=== PATIENT | female | born 1970 | race Caucasian/White ===

== ENCOUNTER → 2017-11-15 | Outpatient (CLI) | payer OTHER ==
[~2017-11-15] MED LIST: LEVO75TA PO; LORA-446 PO; OXYC-302 PO; PARO20TA98 PO
== END | disposition home or self-care (01) ==
LOC: CFH 06:56
PROVIDERS: ATTEND Internal Medicine
DX: M50.221 Other cervical disc displacement at C4-C5 level (principal); M50.321 Other cervical disc degeneration at C4-C5 level
CPT/HCPCS: 72141

== ENCOUNTER → 2018-01-30 | Outpatient (CLI) | payer BC | END | disposition home or self-care (01) | LOC: CFH 14:41 | PROVIDERS: ATTEND Anesthesiology | DX: D49.512 Neoplasm of unspecified behavior of left kidney (principal); R29.2 Abnormal reflex; R51 Headache; R42 Dizziness and giddiness | CPT/HCPCS: 70551 ==